=== PATIENT | female | born 1955 | race Native Hawaiian/Other Pacific Islander ===

== ENCOUNTER 2018-02-06 12:04 | Day surgery (SDC) | payer BC ==
[~2018-02-06 12:04] MED LIST: ALPR0.5T24 PO; COZAAR25 MG PO; DIGOXIN0.25 MG PO; DIPH2.5T76 PO; DULO60CA2 OR; FLUO10CA2 PO; FORTAMET1000 MG PO; GLIM4TAB PO; GLIP5TAB65 PO; LEVO0.1224 PO; METF100038 OR; NEURONTIN 100M100 MG PO
== END 2018-02-06 15:40 | disposition home or self-care (01) ==
LOC: OR 12:04
PROC: 0DBH8ZZ Excision of Cecum, Via Natural or Artificial Opening Endoscopic (ICD-10-PCS; principal; 2018-02-06)
DX: D12.0 Benign neoplasm of cecum (principal); K64.8 Other hemorrhoids; Z12.11 Encounter for screening for malignant neoplasm of colon; R19.7 Diarrhea, unspecified
CPT/HCPCS: J2001; J2250; J2704

== ENCOUNTER 2018-10-23 09:02 | Outpatient (CLI) | payer OTHER | END 2018-10-23 23:59 | disposition home or self-care (01) | LOC: MAMMO 09:02 | DX: R10.31 Right lower quadrant pain (principal); Z12.31 Encounter for screening mammogram for malignant neoplasm of breast | CPT/HCPCS: 36415; 82565; 84520; Q9963 ==

== ENCOUNTER 2018-11-20 13:15 | Outpatient (CLI) | payer OTHER | END 2018-11-20 19:12 | disposition home or self-care (01) | LOC: RAD 13:15 | DX: M54.17 Radiculopathy, lumbosacral region (principal); R92.8 Other abnormal and inconclusive findings on diagnostic imaging of breast ==

== ENCOUNTER 2018-11-22 10:47 | Outpatient (CLI) | payer OTHER | END 2018-11-22 23:59 | disposition home or self-care (01) | LOC: LABW 10:47 | DX: R80.9 Proteinuria, unspecified (principal) | CPT/HCPCS: 84156 ==

== ENCOUNTER 2019-01-07 08:09 | Outpatient (CLI) | payer OTHER ==
[~2019-01-07] VITALS: Ht 170.2 cm; Wt 121.1 kg
== END 2019-01-07 23:13 | disposition home or self-care (01) ==
LOC: NM 08:09
DX: I25.10 Atherosclerotic heart disease of native coronary artery without angina pectoris (principal); R94.31 Abnormal electrocardiogram [ECG] [EKG]
CPT/HCPCS: A9500; J2785

== ENCOUNTER 2019-02-07 13:46 | Outpatient (CLI) | payer OTHER | END 2019-02-07 19:23 | disposition home or self-care (01) | LOC: RAD 13:46 | DX: J20.9 Acute bronchitis, unspecified (principal) ==

== ENCOUNTER 2019-03-26 12:56 | Outpatient (CLI) | payer OTHER ==
[2019-03-26 13:15] LABS: PLATELET COUNT 218 K/uL (152-353)
== END 2019-03-26 23:43 | disposition home or self-care (01) ==
LOC: LABW 12:56
PROVIDERS: Internal Medicine Nephrology
DX: I12.9 Hypertensive chronic kidney disease with stage 1 through stage 4 chronic kidney disease, or unspecified chronic kidney disease (principal); N18.3 Chronic kidney disease, stage 3 (moderate); E78.5 Hyperlipidemia, unspecified; E11.21 Type 2 diabetes mellitus with diabetic nephropathy; R80.9 Proteinuria, unspecified
CPT/HCPCS: 36415; 80053; 80061; 80074; 81000; 82306; 82570; 83036; 83516; 83970; 84100; 84155; 84165; 84166; 84439; 84443; 85027; 86160; 86255; 86592

== ENCOUNTER 2019-03-27 09:51 | Outpatient (CLI) | payer OTHER | END 2019-03-27 23:03 | disposition home or self-care (01) | LOC: LAB 09:51 | DX: I12.9 Hypertensive chronic kidney disease with stage 1 through stage 4 chronic kidney disease, or unspecified chronic kidney disease (principal); N18.3 Chronic kidney disease, stage 3 (moderate); E78.5 Hyperlipidemia, unspecified; E11.21 Type 2 diabetes mellitus with diabetic nephropathy; R80.9 Proteinuria, unspecified | CPT/HCPCS: 36415; 80074; 83516; 84165; 84166; 86160; 86255 ==

== ENCOUNTER 2019-05-13 10:12 | Outpatient (CLI) | payer OTHER | END 2019-05-13 22:53 | disposition home or self-care (01) | LOC: LABW 10:12 | DX: E11.9 Type 2 diabetes mellitus without complications (principal); I12.9 Hypertensive chronic kidney disease with stage 1 through stage 4 chronic kidney disease, or unspecified chronic kidney disease; E78.5 Hyperlipidemia, unspecified; E11.21 Type 2 diabetes mellitus with diabetic nephropathy; R80.9 Proteinuria, unspecified; N18.3 Chronic kidney disease, stage 3 (moderate) | CPT/HCPCS: 36415; 81000; 82570; 83970; 84155; 87088 ==

== ENCOUNTER 2019-08-27 09:31 | Outpatient (CLI) | payer OTHER | END 2019-08-27 19:28 | disposition home or self-care (01) | LOC: US 09:31 | DX: K43.9 Ventral hernia without obstruction or gangrene (principal) | CPT/HCPCS: 36415; 82565; 84520 ==

== ENCOUNTER 2019-10-16 13:32 | Outpatient (CLI) | payer OTHER ==
[2019-10-16 14:38] LABS: POTASSIUM 5.5 mmol/L (3.6-5.2); SODIUM 137 mmol/L (136-145)
== END 2019-10-16 19:47 | disposition home or self-care (01) ==
LOC: RAD 13:32 → LABW 13:32 → RAD 19:47
PROVIDERS: Nurse Practitioner Family
DX: R05 Cough (principal)
CPT/HCPCS: 36415; 80053; 82550; 84484; 85379

== ENCOUNTER 2020-02-05 15:01 | Outpatient (CLI) | payer OTHER | END 2020-02-05 19:00 | disposition home or self-care (01) | LOC: RAD 15:01 | DX: J20.8 Acute bronchitis due to other specified organisms (principal) ==

== ENCOUNTER 2020-02-11 11:34 | Outpatient (CLI) | payer OTHER | END 2020-02-11 21:52 | disposition home or self-care (01) | LOC: RAD 11:34 | DX: J18.1 Lobar pneumonia, unspecified organism (principal) ==

== ENCOUNTER 2020-05-31 09:29 | Outpatient (CLI) | payer OTHER ==
[2020-05-31 09:49] LABS: PLATELET COUNT 235 K/uL (152-353)
[2020-05-31 09:56] LABS: POTASSIUM 5.2 mmol/L (3.6-5.2)
== END 2020-05-31 19:09 | disposition home or self-care (01) ==
LOC: LABW 09:29
PROVIDERS: Specialist
DX: Z01.810 Encounter for preprocedural cardiovascular examination (principal); R93.1 Abnormal findings on diagnostic imaging of heart and coronary circulation
CPT/HCPCS: 36415; 80053; 85027

== ENCOUNTER 2020-11-30 09:13 | Outpatient (CLI) | payer OTHER ==
[~2020-11-30] VITALS: Ht 30.5 cm; Wt 0.5 kg
== END 2020-11-30 21:46 | disposition home or self-care (01) ==
LOC: NM 09:13
PROVIDERS: ATTEND Specialist
DX: R06.09 Other forms of dyspnea (principal); I25.10 Atherosclerotic heart disease of native coronary artery without angina pectoris
CPT/HCPCS: A9500; J2785

== ENCOUNTER 2020-12-13 10:50 | Outpatient (CLI) | payer OTHER | END 2020-12-13 19:21 | disposition home or self-care (01) | LOC: RESP 10:50 | PROVIDERS: ATTEND Nurse Practitioner | DX: R06.09 Other forms of dyspnea (principal); R94.39 Abnormal result of other cardiovascular function study ==

== ENCOUNTER 2022-02-07 10:59 | Outpatient (CLI) | payer OTHER ==
[2022-02-07 11:25] LABS: PLATELET COUNT 255 K/uL (152-353)
[2022-02-07 11:33] LABS: POTASSIUM 5.7 mmol/L (3.6-5.2)
== END 2022-02-07 19:30 | disposition home or self-care (01) ==
LOC: LABW 10:59
PROVIDERS: ATTEND Specialist
DX: Z01.810 Encounter for preprocedural cardiovascular examination (principal); R06.09 Other forms of dyspnea
CPT/HCPCS: 36415; 80048; 85027

== ENCOUNTER 2022-07-03 13:42 | Outpatient (CLI) | payer OTHER ==
[2022-07-03 14:05] LABS: PLATELET COUNT 276 K/uL (152-353)
[2022-07-03 14:47] LABS: POTASSIUM 6.5 mmol/L (3.6-5.2)
== END 2022-07-03 19:00 | disposition home or self-care (01) ==
LOC: LABW 13:42
PROVIDERS: ATTEND Specialist
DX: R94.39 Abnormal result of other cardiovascular function study (principal)
CPT/HCPCS: 36415; 80048; 85027

== ENCOUNTER 2022-07-05 14:44 | Outpatient (CLI) | payer OTHER ==
[2022-07-05 15:24] LABS: POTASSIUM 6.2 mmol/L (3.6-5.2)
== END 2022-07-05 19:01 | disposition home or self-care (01) ==
LOC: LABW 14:44
PROVIDERS: ATTEND Nurse Practitioner
DX: Z01.810 Encounter for preprocedural cardiovascular examination (principal); E87.5 Hyperkalemia
CPT/HCPCS: 36415; 80048

== ENCOUNTER 2022-10-05 10:09 | Outpatient (CLI) | payer OTHER ==
[2022-10-05 11:23] LABS: POTASSIUM 6.1 mmol/L (3.6-5.2)
== END 2022-10-05 19:43 | disposition home or self-care (01) ==
LOC: LABW 10:09
PROVIDERS: ATTEND Specialist
DX: E87.5 Hyperkalemia (principal); R94.39 Abnormal result of other cardiovascular function study
CPT/HCPCS: 36415; 80048

== ENCOUNTER 2022-10-10 10:39 | Outpatient (CLI) | payer OTHER ==
[2022-10-10 11:12] LABS: POTASSIUM 5.5 mmol/L (3.6-5.2)
== END 2022-10-10 19:20 | disposition home or self-care (01) ==
LOC: LABW 10:39
PROVIDERS: ATTEND Nurse Practitioner Adult Health
DX: E87.5 Hyperkalemia (principal); Z79.899 Other long term (current) drug therapy
CPT/HCPCS: 36415; 80048

== ENCOUNTER 2022-11-03 09:23 | Outpatient (CLI) | payer OTHER | END 2022-11-03 18:54 | disposition home or self-care (01) | LOC: US 09:23 | PROVIDERS: ATTEND Nurse Practitioner Family | DX: E78.2 Mixed hyperlipidemia (principal) ==

== ENCOUNTER 2023-10-25 12:45 | Outpatient (CLI) | payer OTHER | END 2023-10-25 19:31 | disposition home or self-care (01) | LOC: US 12:45 | PROVIDERS: ATTEND Student in an Organized Health Care Education/Training Program | DX: N28.89 Other specified disorders of kidney and ureter (principal); D63.1 Anemia in chronic kidney disease; E11.9 Type 2 diabetes mellitus without complications; E79.0 Hyperuricemia without signs of inflammatory arthritis and tophaceous disease; N25.81 Secondary hyperparathyroidism of renal origin; R80.8 Other proteinuria; N18.9 Chronic kidney disease, unspecified; I12.9 Hypertensive chronic kidney disease with stage 1 through stage 4 chronic kidney disease, or unspecified chronic kidney disease ==